=== PATIENT | male | born 1995 | race African-American/Black ===

== ENCOUNTER 2022-11-10 16:56 | Emergency (ER) | payer BC, SELFPAY ==
[2022-11-10 17:08] VITALS: BP 141/81; PULSE 69; RESP 16; TEMP 36.9; O2SAT 99
--- NOTE | 2022-11-10 17:13 | ED.URI ---
HPI - URI/Sore Throat General Stated Complaint: Cough/Sinus Time Seen by Provider: 11/10/22 17:13 Source: patient Mode of arrival: ambulatory Limitations: no limitations History of Present Illness HPI Narrative: Mr. Rodgers is a 27-year-old male patient presenting to the clinic today with complaints of cough and sinus congestion x1 week. He reports he is bringing up some whitish clear phlegm. Denies any fever chills. Denies any body aches, shortness of breath, or sore throat. States his throat is slightly scratchy that started this morning. MD elicited complaint: cough and nasal congestion Related Data Home Medications Medication Instructions Recorded Confirmed Zyrtec-D 1 tablet DAILY 11/10/22 11/10/22 Allergies Allergy/AdvReac Type Severity Reaction Status Date / Time No Known Allergies Allergy Verified 11/10/22 17:15 Review of Systems Review of Systems: Pertinent positives per HPI. Patient denies any fever, chills, rash, headache, visual changes, dizziness,shortness of breath, chest pain, palpitations, nausea, vomiting, diarrhea, constipation, abdominal pain, or any urinary issues. PMFSH Comments At the time of my signature, I reviewed and agree with the nursing past medical, surgical, social, and family history. There is no relevant family history pertinent to the patient complaint. Exam Narrative: General: Well-developed, well nourished, in no apparent distress Head: Normocephalic, atraumatic Eyes: Pupils equally round and reactive to light bilaterally, EOM intact, sclera and conjunctive clear, no discharge, lids normal Ears: TMs intact and clear, ear canals clear, no drainage, grossly hearing normal. Nose: Nares patent, clear nasal discharge, no inflammation, no sinus tenderness. Mouth: Oral pharynx without lesions or masses, good dentition, MMM. Postnasal drip Neck: Supple, trachea midline, no enlargement of anterior or posterior cervical nodes, no thyroid masses or goiter palpable. Cardio: Regular rate and rhythm, s1 and s2 normal, no murmur appreciated. Resp: Clear to auscultation bilaterally, no rhonchi, rales, wheezing or rubs Course Course Emergency Course: Portions of this record may have been created with voice recognition software. Level of Care: Express Care Visit Vital Signs Vital signs: Vital Signs Temperature 36.9 C 11/10/22 17:08 Pulse Rate 69 11/10/22 17:08 Respiratory Rate 16 11/10/22 17:08 Blood Pressure 141/81 H 11/10/22 17:08 Pulse Oximetry 99 11/10/22 17:08 Oxygen Delivery Room Air 11/10/22 17:08 Temperature 36.9 C 11/10/22 17:08 Pulse Rate 69 11/10/22 17:08 Respiratory Rate 16 11/10/22 17:08 Blood Pressure 141/81 H 11/10/22 17:08 Pulse Oximetry 99 11/10/22 17:08 Oxygen Delivery Room Air 11/10/22 17:08 Vital signs reviewed MDM - URI/Sore Throat MDM Narrative Medical decision making narrative: At the time of visit patient is resting comfortably on exam table. I suspect patient has URI. Prescription for prednisone was sent to pharmacy and supportive measures were discussed with the patient she voiced understanding discharge instructions agrees to treatment plan. Differential Diagnosis Differential diagnosis: Likely upper respiratory infection, otitis media, sinusitis, viral infection, bronchitis, influenza, pharyngitis and other (COVID) Discharge Plan Discharge Clinical Impression: Acute upper respiratory infection Patient Disposition: Home, Self-Care Condition: Stable Instructions: Antibiotic Form, Upper Respiratory Infection (ED) Additional Instructions: Take prescription medications only as prescribed-prednisone Increase fluids and stay well hydrated Tylenol/motrin for pain/fever Flonase and OTC antihistamines as directed Vicks vapor rub to open sinuses Sinus rinses for congestion Cepacol spray, cough drops, throat lozenges, warm tea with honey/lemon, gargle salt water to soothe thro
== END 2022-11-10 17:24 | disposition home or self-care (01) ==
PROVIDERS: Emergency Provider Nurse Practitioner Family; PCP Physician Assistant Medical
DX: J06.9 Acute upper respiratory infection, unspecified (principal)
CPT/HCPCS: 99213; G0463

== ENCOUNTER 2022-11-18 14:26 | Emergency (ER) | payer BC, SELFPAY ==
--- NOTE | ~2022-11-18 | XR_ITS ---
XR chest 2V DATE: 11/18/2022 15:07 INDICATION: Shortness of breath and cough for 3 weeks TECHNIQUE: PA and lateral views COMPARISON: None FINDINGS: Normal heart size. No hilar or mediastinal enlargement. No pulmonary infiltrate or consolid ation, pleural effusion or pulmonary vascular congestion or pneumothorax is detected. Included skelet al structures appear unremarkable. IMPRESSION: No active cardiopulmonary disease Reviewed, dictated and finalized at location []
[2022-11-18 14:28] VITALS: BP 157/99; PULSE 73; RESP 18; TEMP 36.4; O2SAT 98
--- NOTE | 2022-11-18 14:39 | ED.URI ---
HPI - URI/Sore Throat General Chief Complaint: Upper Respiratory Infection Stated Complaint: cough/SOB Time Seen by Provider: 11/18/22 14:28 History of Present Illness HPI Narrative: 27-year-old with no medical problems presents to the emergency room for evaluation of a productive cough for 3 weeks. Patient states that he was seen at urgent care a week ago and placed on a 5-day course of steroids. Patient has not taken any medications for his cough. Denies shortness of breath or difficulty breathing. Patient endorses postnasal drip sinus congestion and frequently clearing his throat. Patient states he contacted his PCP today, and was told to come to the emergency room to rule out a PE. Related Data Home Medications Medication Instructions Recorded Confirmed Zyrtec-D 1 tablet DAILY 11/10/22 11/10/22 Allergies Allergy/AdvReac Type Severity Reaction Status Date / Time No Known Allergies Allergy Verified 11/18/22 14:27 Review of Systems Review of Systems: CONSTITUTIONAL: Denies fever, chills, or sweats. EYES: Denies visual changes, redness, or discharge. ENT: Denies rhinorrhea, congestion, sore throat, or otalgia. CARDIOVASCULAR: Denies chest pain, palpitations, or edema. RESPIRATORY: Reports cough GASTROINTESTINAL: Denies abdominal pain, nausea, vomiting, or diarrhea. GENITOURINARY: Denies dysuria or hematuria. SKIN: Denies rash or itching. MUSCULOSKELETAL: Denies back pain, joint pain, or myalgia. NEUROLOGIC: Denies headache, numbness, dizziness, or weakness. PSYCHIATRIC: Denies anxiety or depression. Exam Narrative: GENERAL: Well-appearing, well-nourished, no physical limitations, and in no acute distress. HEAD: Normocephalic, atraumatic. EYES: Conjunctivae normal, PERRLA and EOMI. CHEST: Clear to auscultation. No respiratory distress. No wheezes rales or rhonchi. HEART: Regular rate and rhythm. No murmur heard. Normal peripheral pulses. EXTREMITIES: Normal range of motion. No edema. No clubbing or cyanosis SKIN: Warm, dry, no rash. No noted wounds NEURO: No focal deficits. Alert and oriented x3. MAEW. CN's II-XI intact bilaterally, normal gait PSYCH: Cooperative. Normal mood and affect. Course Vital Signs Vital signs: Vital Signs Temperature 36.4 C L 06/07/23 14:28 Pulse Rate 73 11/18/22 14:28 Respiratory Rate 18 11/18/22 14:28 Blood Pressure 157/99 H 11/18/22 14:28 Pulse Oximetry 98 11/18/22 14:28 Oxygen Delivery Room Air 11/18/22 14:28 Temperature 36.4 C L 11/18/22 14:28 Pulse Rate 73 11/18/22 14:28 Respiratory Rate 18 11/18/22 14:28 Blood Pressure 157/99 H 11/18/22 14:28 Pulse Oximetry 98 11/18/22 14:28 Oxygen Delivery Room Air 11/18/22 14:28 MDM - URI/Sore Throat Lab Data Labs: Lab Results 11/18/22 Range/Units 14:48 D-Dimer < 0.27 (<0.48) ug/mL Discharge Plan Discharge Clinical Impression: Upper respiratory infection Qualifiers: URI type: unspecified viral URI Qualified Code(s): J06.9 - Acute upper respiratory infection, unspecified Cough Qualifiers: Cough type: acute Qualified Code(s): R05.1 - Acute cough Patient Disposition: Home, Self-Care Condition: Stable Instructions: Antibiotic Form, Acute Cough (ED) Prescriptions: New albuterol sulfate 90 mcg/actuation HFA aerosol inhaler 1 inh inhalation QID Qty: 8.5 0RF promethazine-DM 6.25-15 mg/5 mL syrup 5 ml PO Q4-6H PRN (Reason: cough) Qty: 118 0RF pseudoephedrine HCl [Sudafed] 30 mg tablet 30 mg PO Q4-6H PRN (Reason: nasal congestion) Qty: 48 0RF Rx Instructions: DNExceed 4 doses/24h No Action prednisone 20 mg tablet 40 mg PO DAILY 5 Days Qty: 10 0RF Zyrtec-D 1 tablet DAILY Follow-up/Referrals: Jose Alfredo,JONAH Kaur [Primary Care Provider] - Time of Disposition: 15:30
[2022-11-18 15:22] LABS: D Dimer < 0.27 ug/mL (<0.48)
[2022-11-18 15:35] VITALS: BP 123/70; PULSE 70; RESP 16; O2SAT 99
== END 2022-11-18 15:35 | disposition home or self-care (01) ==
PROVIDERS: Emergency Provider Nurse Practitioner Family; PCP Physician Assistant Medical
DX: J06.9 Acute upper respiratory infection, unspecified (principal)
CPT/HCPCS: 36415; 71046; 85380; 99283

== ENCOUNTER 2023-01-29 14:51 | Emergency (ER) | payer BC, SELFPAY ==
--- NOTE | ~2023-01-29 | XR_ITS ---
EXAMINATION: XR knee LT min 4V DATE: 01/29/2023 15:36 INDICATION: Left knee pain TECHNIQUE: Four views of the left knee were obtained. COMPARISON: None. FINDINGS: Alignment is normal. No fracture or osteochondral lesion. Changes of prior ACL repair are n oted. Joint spaces are normal with no erosions. No joint effusion/synovitis. Soft tissues are unrem arkable. IMPRESSION: 1. No acute osseous abnormality. Reviewed, dictated and finalized at location B.
[2023-01-29 14:55] VITALS: BP 125/60; PULSE 81; RESP 17; TEMP 36.8; O2SAT 98
--- NOTE | 2023-01-29 15:28 | ED.GENADULT ---
HPI - General Adult General Chief complaint: Extremity Injury, Lower Stated complaint: knee injury Time Seen by Provider: 01/29/23 15:27 Source: patient Mode of arrival: ambulatory Limitations: no limitations History of Present Illness HPI narrative: This is a 27-year-old male who presents to the ED with chief complaint of a left knee injury occurring this afternoon just prior to arrival. Patient states that he was playing sugar on basketball with his friends and shortly after they were done when he was leaving the gym he had the injury. States he turned around to go out the door and felt his left knee buckle. He feels like there may have been a pop. He reports pain with weightbearing now. Denies numbness, weakness. Denies any further site of pain or injury. Reports history of ACL tear x2. 2012 and 2016. Related Data Home Medications Medication Instructions Recorded Confirmed Zyrtec-D 1 tablet DAILY 11/10/22 11/10/22 Allergies Allergy/AdvReac Type Severity Reaction Status Date / Time No Known Allergies Allergy Verified 11/18/22 14:27 Review of Systems Review of Systems: All systems as dictated in HPI Exam Narrative: GENERAL: Well-appearing, well-nourished, and in no acute distress. HEAD: Normocephalic, atraumatic. EYES: PERRLA and EOMI. ENT: Nares clear, no rhinorrhea or epistaxis. Mucous membranes moist. Oropharynx without tonsillar hypertrophy exudate or other lesions. NECK: Supple. No adenopathy or masses. CHEST: No respiratory distress. Clear to auscultation. No wheezes rales or rhonchi HEART: Regular rate and rhythm. No murmur heard. Normal peripheral pulses. ABDOMEN: Soft, nontender, nondistended, normal active bowel sounds. MSK: Right knee: Benign. Left knee: No gross deformity or bruising. Mild tenderness throughout the knee especially medially. Limited active range of motion due to pain. Full passive range of motion. Neurovascular intact distally. SKIN: Warm, dry, no rash. NEURO: Alert and oriented x3. No focal deficits. PSYCH: Normal mood and affect. Course Vital Signs Vital signs: Vital Signs Temperature 98.3 F 01/29/23 14:55 Pulse Rate 81 01/29/23 14:55 Respiratory Rate 17 01/29/23 14:55 Blood Pressure 125/60 01/29/23 14:55 Pulse Oximetry 98 01/29/23 14:55 Oxygen Delivery Room Air 01/29/23 14:55 Temperature 98.3 F 01/29/23 14:55 Pulse Rate 81 01/29/23 14:55 Respiratory Rate 17 01/29/23 14:55 Blood Pressure 125/60 01/29/23 14:55 Pulse Oximetry 98 01/29/23 14:55 Oxygen Delivery Room Air 01/29/23 14:55 Medical Decision Making MDM Narrative Medical decision making narrative: This is a 27-year-old male who presents to the ED with chief complaint of left knee injury occurring after playing sports today. He felt like the knee buckled. Vitals are normal. Exam shows a stable knee. No deformity or bruising. X-rays are negative for any acute osseous findings. He has history of ACL tear so it is possible that he has soft tissue injury. Knee immobilizer and crutches given. He has an orthopedic doctor that he can follow-up with. Pt will be discharged in stable condition. Return precautions given and supportive measures discussed. Pt is understanding and agreeable with plan for discharge and follow-up with PCP. Vital Signs Vital Signs: Vital Signs Temperature 98.3 F 01/29/23 14:55 Pulse Rate 81 01/29/23 14:55 Respiratory Rate 17 01/29/23 14:55 Blood Pressure 125/60 01/29/23 14:55 Pulse Oximetry 98 01/29/23 14:55 Oxygen Delivery Room Air 01/29/23 14:55 Temperature 98.3 F 01/29/23 14:55 Pulse Rate 81 01/29/23 14:55 Respiratory Rate 17 01/29/23 14:55 Blood Pressure 125/60 01/29/23 14:55 Pulse Oximetry 98 01/29/23 14:55 Oxygen Delivery Room Air 01/29/23 14:55 Discharge Plan Discharge Clinical Impression: Left knee injury Patient Disposition: Home, Self-Care Condi
== END 2023-01-29 16:58 | disposition home or self-care (01) ==
LOC: ANHED 16:12
PROVIDERS: Emergency Provider Physician Assistant; PCP Physician Assistant Medical
DX: S89.92XA Unspecified injury of left lower leg, initial encounter (principal); X50.9XXA Other and unspecified overexertion or strenuous movements or postures, initial encounter
CPT/HCPCS: 73564; 99283

== ENCOUNTER 2023-03-12 13:32 | Outpatient (CLI) | payer BC, SELFPAY ==
--- NOTE | ~2023-03-12 | MR_ITS ---
EXAMINATION: MR knee LT wo con DATE: 03/12/2023 14:16 INDICATION: Unspecified left lower leg injury TECHNIQUE: Magnetic resonance imaging (MRI) of the left knee was performed without intravenous contra st. Sequences included coronal PD-weighted FSE, coronal PD-weighted FS FSE, sagittal T2-weighted FSE , sagittal PD-weighted FS FSE and axial PD weighted fat saturated FSE. COMPARISON: None. FINDINGS: Medial compartment: Displaced bucket-handle tear of the medial meniscus with small amount of remaining nondisplaced menis alejandro tissue at the body and posterior horn and with the displaced bucket-handle flap extending anterop osteriorly along the cephalad margin of the intercondylar eminence. There is chondral ulceration invo lving less than 50% the cartilage thickness and with chondral surface regularity at the central aspec t of the weightbearing medial femoral condyle. Remaining cartilage in the medial compartment appears relatively preserved. Lateral compartment: Deep chondral fissure with mild underlying edema-like signal change at the anterior weightbearing lat eral femoral condyle. There is some chondral swelling along the posterior rim of the lateral tibial p lateau. Patellofemoral compartment: Articular cartilage is normal. Ligaments and tendons: Postoperative change of prior primary and revision anterior cruciate ligament reconstructions with so me residual graft tissue evident in each of paired femoral and tibial tunnels. Recurrent graft failur e with no evident residual intact graft tissue and with secondary anterior subluxation of the tibia. Posterior cruciate ligament remains normal but with increased laxity resulting from the anterior tibi al subluxation. The medial collateral ligament and fibular collateral ligament complex are normal. Th e extensor mechanism is normal. The visualized medial and lateral hamstring tendons as well as the il iotibial band are normal. Fluid: Small knee joint effusion. No loose osteochondral bodies identified. Osseous/other: No fracture or pathologic marrow replacing process. IMPRESSION: 1. 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 2. Displaced bucket-handle tear of the medial meniscus. 3. Mild osteoarthritis in the medial and patellofemoral compartments with small region of moderate gr charlie chondromalacia the former and small region of high-grade chondromalacia at the latter. Reviewed, dictated and finalized at location A. IMPRESSION: 1. 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 2. Displaced bucket-handle tear of the medial meniscus. 3. Mild osteoarthritis in the medial and patellofemoral compartments with small region of moderate grade chondromalacia the former and small region of high-gr charlie chondromalacia at the latter.
== END 2023-03-12 13:33 ==
LOC: GOSHIMG 13:33
PROVIDERS: PCP Physician Assistant Medical; Visit Provider Nurse Practitioner
DX: S83.212A Bucket-handle tear of medial meniscus, current injury, left knee, initial encounter (principal); M17.12 Unilateral primary osteoarthritis, left knee; M94.262 Chondromalacia, left knee; S83.512A Sprain of anterior cruciate ligament of left knee, initial encounter; Z98.890 Other specified postprocedural states
CPT/HCPCS: 73721